=== PATIENT | female | born 1960 | race Caucasian/White ===

== ENCOUNTER → 2017-02-07 | Outpatient (CLI) | payer BC ==
[~2017-02-07] MED LIST: PRILOSEC20 MG PO
== END ==
LOC: COL.RAD 08:54
DX: M25.551 Pain in right hip (principal)
CPT/HCPCS: J3301; Q9967

== ENCOUNTER 2017-04-25 15:45 | Outpatient (RCR) | payer BC | END 2017-05-29 | disposition home or self-care (01) | LOC: MKS.ESL.PT | DX: M25.551 Pain in right hip (principal); Z98.890 Other specified postprocedural states ==

== ENCOUNTER 2017-09-17 10:06 | Outpatient (RCR) | payer BC | END 2017-09-18 08:36 | disposition home or self-care (01) | LOC: MKS.ESL.PT 10:06 | DX: Z01.818 Encounter for other preprocedural examination (principal); M17.11 Unilateral primary osteoarthritis, right knee ==

== ENCOUNTER → 2017-09-19 | Outpatient (CLI) | payer BC ==
[2017-09-19 12:10] LABS: HIV 1/2 Antibodies Non-Reactive; HIV-1p24 Antigen Non-Reactive
== END ==
LOC: COL.LAB 10:49
PROVIDERS: Orthopaedic Surgery
DX: Z01.812 Encounter for preprocedural laboratory examination (principal); M17.11 Unilateral primary osteoarthritis, right knee

== ENCOUNTER → 2017-12-20 | Outpatient (CLI) | payer BC | LOC: COL.RAD 12:55 | DX: M16.11 Unilateral primary osteoarthritis, right hip (principal) | CPT/HCPCS: J3301; Q9967 ==

== ENCOUNTER 2017-12-27 10:00 | Outpatient (RCR) | payer BC | END 2017-12-31 | disposition home or self-care (01) | LOC: MKS.ESL.PT | DX: Z47.1 Aftercare following joint replacement surgery (principal); Z96.651 Presence of right artificial knee joint | CPT/HCPCS: G0283-GP ==

== ENCOUNTER 2018-01-08 14:00 | Outpatient (RCR) | payer BC | END 2018-01-09 08:40 | disposition home or self-care (01) | LOC: MKS.ESL.PT 14:00 | DX: Z47.1 Aftercare following joint replacement surgery (principal); Z96.651 Presence of right artificial knee joint ==

== ENCOUNTER 2018-03-08 12:30 | Inpatient (IN) | payer BC ==
[~2018-03-08] VITALS: Wt 104.3 kg
[~2018-03-08 12:30] MED LIST changes: +PRILOSEC 20MG20 MG PO; -PRILOSEC20 MG PO
[2018-04-24] VITALS (11 sets, daily range): BP systolic 100–136; BP diastolic 51–95; PULSE 8–88; TEMP 97.4–98.2
[2018-04-24] MEDS ORDERED: GLUCOPHAGE500 MG/TAB PO (07:33)
[2018-04-24] MEDS ORDERED: LEXAPRO 10MG10 MG PO (07:33)
[2018-04-24] MEDS ORDERED: COLACE 100100 MG/CAP PO (07:34)
[2018-04-24] MEDS ORDERED: TYLENOL 8 HR PO (07:34)
[2018-04-25 04:58] VITALS: BP 115/65; PULSE 83; TEMP 98.2
[2018-04-25 06:14] LABS: HEMOGLOBIN 10.1 g/dl (12.5-16.0)
[2018-04-25 06:22] LABS: HEMATOCRIT 31.9 % (37.0-47.0)
[2018-04-25] MEDS ORDERED: ASPI325T6 PO (07:00)
[2018-04-25] MEDS ORDERED: NORCO 325 MG-7.1 TAB PO (07:01)
[2018-04-25] MEDS ORDERED: TYLENOL 500MG500 MG PO (07:02)
[2018-04-25] MEDS ORDERED: ROXICODONE 55 MG/TAB PO (07:02)
[2018-04-25] MEDS ORDERED: ZANTAC 150MG T150 MG PO (07:03)
[2018-04-25 08:13] VITALS: BP 115/73; PULSE 91; TEMP 98.8
[2018-04-25 12:19] VITALS: BP 115/62; PULSE 101; TEMP 98.6
[2018-04-25 16:36] VITALS: BP 122/62; PULSE 104; TEMP 98.1
[2018-04-25 19:18] VITALS: BP 120/69; BP 160/72; PULSE 56; PULSE 67; TEMP 98.5
[2018-04-26 03:12] VITALS: BP 106/70; PULSE 105; TEMP 98.5
[2018-04-26 07:27] VITALS: BP 107/73; PULSE 104; TEMP 97.5
[2018-04-26 11:50] VITALS: BP 119/71; PULSE 98; TEMP 97.8
== END 2018-04-26 13:40 | disposition home or self-care (01) | DRG 470 ==
LOC: JCC 04-24 06:54
PROVIDERS: Orthopaedic Surgery
PROC: 0SR904A Replacement of Right Hip Joint with Ceramic on Polyethylene Synthetic Substitute, Uncemented, Open Approach (ICD-10-PCS; principal; 2018-04-24 10:15)
DX: M16.11 Unilateral primary osteoarthritis, right hip (principal); M87.351 Other secondary osteonecrosis, right femur; E66.01 Morbid (severe) obesity due to excess calories; E11.9 Type 2 diabetes mellitus without complications; I10 Essential (primary) hypertension; Z87.891 Personal history of nicotine dependence; Z68.39 Body mass index [BMI] 39.0-39.9, adult; M21.371 Foot drop, right foot; F32.9 Major depressive disorder, single episode, unspecified
CPT/HCPCS: A4314; C1713; C1776; J0690; J2250; J2704; J3010; J7030

== ENCOUNTER 2018-04-17 15:37 | Outpatient (RCR) | payer BC ==
[2018-04-24] MEDS ORDERED: LEXAPRO 10MG10 MG PO (07:33)
[2018-04-24] MEDS ORDERED: GLUCOPHAGE500 MG/TAB PO (07:33)
[2018-04-24] MEDS ORDERED: TYLENOL 8 HR PO (07:34)
[2018-04-24] MEDS ORDERED: COLACE 100100 MG/CAP PO (07:34)
[2018-04-25] MEDS ORDERED: ASPI325T6 PO (07:00)
[2018-04-25] MEDS ORDERED: NORCO 325 MG-7.1 TAB PO (07:01)
[2018-04-25] MEDS ORDERED: TYLENOL 500MG500 MG PO (07:02)
[2018-04-25] MEDS ORDERED: ROXICODONE 55 MG/TAB PO (07:02)
[2018-04-25] MEDS ORDERED: ZANTAC 150MG T150 MG PO (07:03)
== END 2018-04-26 10:09 | disposition home or self-care (01) ==
LOC: MKS.ESL.PT 15:37
DX: Z01.818 Encounter for other preprocedural examination (principal); M16.11 Unilateral primary osteoarthritis, right hip

== ENCOUNTER → 2018-04-18 | Outpatient (CLI) | payer BC ==
[2018-04-18 15:50] LABS: HIV 1/2 Antibodies Non-Reactive; HIV-1p24 Antigen Non-Reactive
== END ==
LOC: COL.LAB 14:01
PROVIDERS: Orthopaedic Surgery
DX: Z01.812 Encounter for preprocedural laboratory examination (principal); M16.11 Unilateral primary osteoarthritis, right hip

== ENCOUNTER 2018-07-01 10:15 | Outpatient (RCR) | payer BC ==
[~2018-07-01 10:15] MED LIST changes: +ASPI325T6 PO; +COLACE 100100 MG/CAP PO; +GLUCOPHAGE500 MG/TAB PO; +LEXAPRO 10MG10 MG PO; +NORCO 325 MG-7.1 TAB PO; +ROXICODONE 55 MG/TAB PO; +TYLENOL 500MG500 MG PO; +TYLENOL 8 HR PO; +ZANTAC 150MG T150 MG PO
== END 2018-07-30 | disposition home or self-care (01) ==
LOC: MKS.ESL.PT
DX: Z47.1 Aftercare following joint replacement surgery (principal); Z96.641 Presence of right artificial hip joint

== ENCOUNTER → 2018-07-10 | Outpatient (CLI) | payer BC ==
[2018-07-10 13:14] LABS: HEMATOCRIT 41.7 % (37.0-47.0); HEMOGLOBIN 13.4 g/dl (12.5-16.0); MEAN CELL VOLUME 91 fl (80.0-100.0); MEAN CORPUSCULAR HEMOGLOBIN 29 pg (27.0-31.0); MEAN CORPUSCULAR HGB CONC 32 g/dl (33.0-37.0); MEAN PLATELET VOLUME 10.9 fl (7.4-10.4); PLATELET COUNT 247 K/mm3 (130-400); RED BLOOD COUNT 4.59 M/mm3 (4.10-5.30); REDCELL DISTRIBUTION WIDTH-CV 13.9 % (11.5-14.5)
[2018-07-10 13:45] LABS: ERYTHROCYTE SEDIMENTATION RATE 7 mm/hr (0-30)
== END ==
LOC: COL.LAB 12:33
PROVIDERS: Orthopaedic Surgery
DX: M25.551 Pain in right hip (principal); R20.2 Paresthesia of skin; Z96.641 Presence of right artificial hip joint

== ENCOUNTER → 2018-07-24 | Outpatient (CLI) | payer BC | LOC: COL.RAD 08:35 | DX: M21.371 Foot drop, right foot (principal); N83.202 Unspecified ovarian cyst, left side; M47.816 Spondylosis without myelopathy or radiculopathy, lumbar region; M48.061 Spinal stenosis, lumbar region without neurogenic claudication; R19.00 Intra-abdominal and pelvic swelling, mass and lump, unspecified site; Z96.651 Presence of right artificial knee joint; Z96.641 Presence of right artificial hip joint | CPT/HCPCS: A9585 ==

== ENCOUNTER 2019-01-02 09:45 | Outpatient (RCR) | payer BC | END 2019-01-06 | disposition still patient (30) | LOC: MKS.ESL.PT | DX: M21.371 Foot drop, right foot (principal); Z96.651 Presence of right artificial knee joint; Z96.641 Presence of right artificial hip joint | CPT/HCPCS: G0283-GP ==

== ENCOUNTER 2019-03-31 10:30 | Outpatient (RCR) | payer BC | END 2019-04-09 | disposition home or self-care (01) | LOC: MKS.ESL.PT | DX: M21.371 Foot drop, right foot (principal); Z96.641 Presence of right artificial hip joint ==

== ENCOUNTER → 2023-01-04 | Outpatient (RCR) | payer BC | END | disposition home or self-care (01) | LOC: MKS.ESL.PT | DX: M16.12 Unilateral primary osteoarthritis, left hip (principal); Z96.642 Presence of left artificial hip joint ==

== ENCOUNTER 2023-02-01 12:45 | Outpatient (RCR) | payer BC | END 2023-02-03 | disposition home or self-care (01) | LOC: MKS.ESL.PT | DX: M16.12 Unilateral primary osteoarthritis, left hip (principal); Z96.642 Presence of left artificial hip joint ==